=== PATIENT | male | born 1995 | race Two or more races ===

== ENCOUNTER 2017-12-16 04:37 | Emergency (ER) | payer MEDICAID ==
[~2017-12-16] VITALS: Ht 188 cm; Wt 81.6 kg
[2017-12-16 06:14] LABS: Basophils # (auto) 0.1 uL; Basophils % (auto) 0.6 % (0.0-2.0); Eosinophils # (auto) 0 uL; Eosinophils % (auto) 0.1 % (0.0-7.0); Lymphocytes # (auto) 1.4 uL; Lymphocytes % (auto) 7.6 % (10.0-50.0); Mean Corpuscular Hemoglobin 29.5 pg (28.0-32.0); Mean Corpuscular Hgb Conc. 33.4 g/dL (32.0-36.0); Mean Corpuscular Volume 88.2 fL (80.0-100.0); Monocytes # (auto) 1.1 uL; Monocytes % (auto) 6.4 % (0.0-12.0); Neutrophils # (auto) 15.3 uL; Neutrophils % (auto) 85.3 % (37.0-80.0); Platelet Count (auto) 244 10^3/uL (140-450); Red Blood Cells 4.76 10^6/uL (4.5-5.90); Red Cell Distribution Width 13.1 % (11.8-14.3); White Blood Cell 17.9 10^3/uL (4.4-10.8)
[2017-12-16 06:28] LABS: INR 0.99 (0.9-1.15); Partial Thromboplastin Time 23.9 sec (22.64-33.71); Prothrombin Time 10.8 sec (9.37-12.3)
[2017-12-16 06:36] LABS: Alanine Aminotransferase 28 U/L (16-61); Albumin 4.2 g/dL (3.4-5.0); Alkaline Phosphatase 84 U/L (45-117); Anion Gap 11 (5-15); Aspartate Aminotransferase 24 U/L (15-37); BUN/Creatinine Ratio 16.1; Bilirubin, Total 0.8 mg/dL (0.2-1.0); Blood Alcohol < 3.0 mg/dL (0-5); Blood Urea Nitrogen 19 mg/dL (7-18); Calcium 8.8 mg/dL (8.5-10.1); Carbon Dioxide 23 mmol/L (21-32); Chloride 105 mmol/L (98-107); GFR African American 98 mL/min; GFR Non-African American 81 mL/min; Glucose 80 mg/dL (74-106); Magnesium 2.2 mg/dL (1.6-2.6); Potassium 3.1 mmol/L (3.5-5.1); Sodium 139 mmol/L (136-145); Total Protein 7.4 g/dL (6.4-8.2)
[2017-12-16 06:52] LABS: Urine WBC None Seen /hpf (0 - 3)
[2017-12-16 07:11] LABS: Urine Bacteria NONE SEEN /hpf (None Seen); Urine Blood Negative /uL (Negative); Urine Mucus FEW (None Seen); Urine Specific Gravity 1.022 (1.001-1.035)
[2017-12-16 07:33] LABS: Alcohol, Urine < 3.0 mg/dL (0-5); Amphetamine Screen, Urine POSITIVE (NEGATIVE); Barbiturate Scree,Urine NEGATIVE (NEGATIVE); Benzodiazephine Screen, Urine NEGATIVE (NEGATIVE); Cannabinoid Screen, Urine POSITIVE (NEGATIVE); Cocaine Screen, Urine POSITIVE (NEGATIVE); Opiate Scree,Urine NEGATIVE (NEGATIVE); Phencyclidine Screen, Urine NEGATIVE (NEGATIVE)
[2017-12-16] MEDS ORDERED: SODIUM CHLORIDE 0.9% 1,000 ML IV ONE (07:33)
[2017-12-16] MEDS ORDERED: POTASSIUM CHL 10% (20 MEQ/15ML) 15ml ORAL SOLN PO ONE (07:45)
[2017-12-16 10:34] VITALS: BP 135/96
== END 2017-12-16 10:44 | disposition home or self-care (01) ==
LOC: EDBD 04:37 → ER 04:42
DX: R00.2 Palpitations (principal); F15.10 Other stimulant abuse, uncomplicated; F12.10 Cannabis abuse, uncomplicated; F14.10 Cocaine abuse, uncomplicated; E87.6 Hypokalemia; F17.210 Nicotine dependence, cigarettes, uncomplicated
CPT/HCPCS: 36415; 71045; 80053; 80307; 80320; 81001; 83735; 83880; 84484; 85025; 85610; 85730; 93005; 99285; J7030; 96360